=== PATIENT | female | born 1980 | race African-American/Black ===

== ENCOUNTER 2017-01-27 13:16 | Emergency (ER) | payer MEDICAID, OTHER ==
[~2017-01-27] VITALS: Ht 157.5 cm; Wt 70.0 kg
[~2017-01-27 13:16] MED LIST: PREN-107 PO
[2017-01-27 18:49] VITALS: BP 152/88
== END 2017-01-27 19:04 | disposition home or self-care (01) ==
LOC: ER 16:43
DX: J06.9 Acute upper respiratory infection, unspecified (principal); S09.21XA Traumatic rupture of right ear drum, initial encounter; Z98.890 Other specified postprocedural states; X58.XXXA Exposure to other specified factors, initial encounter; Y93.E8 Activity, other personal hygiene; Y92.018 Other place in single-family (private) house as the place of occurrence of the external cause
CPT/HCPCS: 99282

== ENCOUNTER 2023-06-05 18:46 | Emergency (ER) | payer MEDICAID, OTHER ==
[~2023-06-05] VITALS: Ht 162.6 cm; Wt 81.0 kg
[2023-06-05 18:59] VITALS: O2SAT 100
[2023-06-05] MEDS: BACITRACIN ZINC OINT UDPKT TOP ONE (19:30)
[2023-06-05] MEDS: LIDOCAINE HCL/PF 1% 10 MG/ML 5ML VIAL INFIL ONE (19:30)
[2023-06-05] MEDS ORDERED: TETANUS, DIPHTHERIA, PERTUSSIS VAC/PF 0.5ML (>10YR OLD) IM ONE (19:30)
[2023-06-05] MEDS: TETANUS, DIPHTHERIA, PERTUSSIS VAC/PF 0.5ML (>10YR OLD) IM ONE (21:15)
[2023-06-05 21:26] VITALS: BP 154/89; PULSE 105; RESP 19; TEMP 98
== END 2023-06-05 21:31 | disposition home or self-care (01) ==
LOC: ER 18:46
DX: S61.411A Laceration without foreign body of right hand, initial encounter (principal); Z98.890 Other specified postprocedural states; W27.8XXA Contact with other nonpowered hand tool, initial encounter; Y93.89 Activity, other specified; Y92.89 Other specified places as the place of occurrence of the external cause; Y99.8 Other external cause status
CPT/HCPCS: 90715; 12001; 90471; 99283; J3490; Z7610 ×2

== ENCOUNTER 2023-06-14 08:53 | Emergency (ER) | payer MEDICAID ==
[~2023-06-14] VITALS: Ht 165.1 cm; Wt 91.0 kg
[2023-06-14 09:10] VITALS: BP 164/96; PULSE 107; RESP 16; TEMP 98.2; O2SAT 100
== END 2023-06-14 10:58 | disposition home or self-care (01) ==
LOC: ER 08:53
DX: S61.011D Laceration without foreign body of right thumb without damage to nail, subsequent encounter (principal); Z48.02 Encounter for removal of sutures; X58.XXXD Exposure to other specified factors, subsequent encounter
CPT/HCPCS: 99281